=== PATIENT | male | born 1960 | race Caucasian/White ===

== ENCOUNTER → 2025-04-09 | Outpatient (CLI) | payer MEDICARE, BC, SELFPAY ==
--- NOTE | 2025-04-09 13:07 | ECHOD_ITS ---
Reason For Study Reason For Study: MITRAL REGURGITATION Procedure This was a 2D Doppler, Color Flow transthoracic echocardiogram. Patient denied doing a bubble study. Exam performed in department. Left Ventricle Normal LV size. The estimated ejection fraction is 70 %. No evidence for diastolic dysfunction. No regional wall motion abnormalities noted. Right Ventricle Normal RV size. Normal systolic function. Atria The left and right atria are normal. No doppler evidence for ASD. Mitral Valve There is no mitral valve stenosis. No mitral valve insufficiency. Tricuspid Valve There is no tricuspid stenosis. Trivial tricuspid valve insufficiency. Pulmonary artery systolic pressure is 30 mmHg. Aortic Valve Trisinus/trileaflet aortic valve. Aortic sclerosis, no stenosis. There is no aortic stenosis. No aortic valve insufficiency. Pulmonic Valve There is no pulmonic valvular stenosis. Trivial pulmonic valve insufficiency. Great Vessels Normal sized aortic root. Pericardium/Pleural No pericardial effusion. MMode/2D Measurements & Calculations LVIDd: 4.3 cm IVSd: 1.1 cm LVOT diam: 2.2 cm LVIDs: 2.6 cm LVPWd: 1.1 cm LVOT area: 3.7 cm2 RVDd: 3.4 cm FS: 39.2 % Ao root diam: 3.4 cm asc Aorta Diam: 3.4 cm LAV(MOD- bp): 58.8 ml LAV(MOD- bp) Indexed: 23.6 ml/m2 LAV(MOD- sp2): 75.9 ml LAV(MOD- sp4): 45.0 ml SV(MOD- sp4): 70.3 ml LVAd ap4: 33.5 cm2 LVAd ap2: 33.4 cm2 LVLd ap4: 9.0 cm LVLd ap2: 8.8 cm SI(MOD- sp4): 28.2 ml/m2 EDV(MOD-sp4): 101.0 ml EDV(MOD-sp2): 102.3 ml EDV(sp4-el): 105.3 ml EDV(sp2-el): 107.1 ml LVAs ap4: 16.4 cm2 LVAs ap2: 18.5 cm2 LVLs ap4: 7.5 cm LVLs ap2: 7.4 cm ESV(MOD-sp4): 30.7 ml ESV(MOD-sp2): 38.4 ml ESV(sp4-el): 30.1 ml ESV(sp2-el): 38.8 ml EF(MOD-sp4): 69.6 % EF(MOD-sp2): 62.5 % EF(sp4-el): 71.4 % SV(MOD-sp2): 63.9 ml SV(sp4-el): 75.1 ml Ao sinus diam: 3.8 cm SI(MOD-sp2): 25.7 ml/m2 Ao ST Junction: 2.8 cm LA dimension(2D): 4.0 cm LA A4 area: 17.7 cm2 TAPSE: 2.1 cm RA A4 area: 15.7 cm2 Time Measurements MV dec time: 0.19 sec Doppler Measurements & Calculations MV E max geoffrey: 83.9 cm/sec Lat Peak E' Geoffrey: 16.4 cm/sec Med Peak E' Geoffrey: 10.7 cm/sec MV A max geoffrey: 80.9 cm/sec E/E' lat: 5.1 E/E' med: 7.8 MV E/A: 1.0 MV dec slope: 431.6 cm/sec2 Ao V2 max: 177.3 cm/sec LV V1 max: 131.4 cm/sec Ao max P.6 mmHg LV V1 max P.9 mmHg Ao V2 mean: 122.9 cm/sec LV V1 mean P.1 mmHg Ao mean P.9 mmHg LV V1 mean: 95.2 cm/sec Ao V2 VTI: 42.4 cm LV V1 VTI: 33.7 cm AV (velocity ratio): 0.79 SHERIE(I,D): 2.9 cm2 SHERIE(V,D): 2.7 cm2 SV(LVOT): 124.4 ml PA V2 max: 114.2 cm/sec TR max geoffrey: 245.2 cm/sec TR max P.1 mmHg ECHO/Echo Complete Interpretation Summary The estimated ejection fraction is 70 %. No evidence for diastolic dysfunction. Ordering Physician: Quintin Shen Referring Physician: Quintin Shen Performed By: Heide Pereira RENITA
== END | disposition home or self-care (01) ==
LOC: CVS 13:04
PROVIDERS: Referring Provider Specialist; Visit Provider Specialist
DX: I34.0 Nonrheumatic mitral (valve) insufficiency (principal)
CPT/HCPCS: 93306; A4216